=== PATIENT | female | born 1950 | race Caucasian/White ===

== ENCOUNTER 2017-02-26 11:28 | Day surgery (SDC) | payer MEDICARE, OTHER ==
[~2017-02-26] VITALS: Ht 157.5 cm; Wt 83.9 kg
[~2017-02-26 11:28] MED LIST: ALENDRONATE70 MG PO; CALCI23 PO; CLARITIN-D1 TA2 PO; CRANBERY450 MG PO; FISH OIL1000 MG PO; GERITOL COMPLETE PO; LOSARTAN POTASS25 MG PO; OMEPRAZOLE10 MG PO; PRAVASTATIN SOD20 MG PO
[2017-02-26 14:02] VITALS: BP 159/77
== END 2017-02-26 14:20 | disposition home or self-care (01) ==
LOC: ENDO 11:28
PROVIDERS: ATTEND Internal Medicine Gastroenterology
PROC: 0DBP8ZX Excision of Rectum, Via Natural or Artificial Opening Endoscopic, Diagnostic (ICD-10-PCS; principal; 2017-02-26)
PROC: 0DBF8ZX Excision of Right Large Intestine, Via Natural or Artificial Opening Endoscopic, Diagnostic (ICD-10-PCS; 2017-02-26)
PROC: 0DBN8ZX Excision of Sigmoid Colon, Via Natural or Artificial Opening Endoscopic, Diagnostic (ICD-10-PCS; 2017-02-26)
DX: R19.7 Diarrhea, unspecified (principal); R10.12 Left upper quadrant pain; K62.5 Hemorrhage of anus and rectum; K90.0 Celiac disease; R19.5 Other fecal abnormalities; K64.4 Residual hemorrhoidal skin tags; K57.30 Diverticulosis of large intestine without perforation or abscess without bleeding; K50.10 Crohn's disease of large intestine without complications; K62.89 Other specified diseases of anus and rectum; K64.8 Other hemorrhoids; K63.89 Other specified diseases of intestine; E03.9 Hypothyroidism, unspecified; I10 Essential (primary) hypertension; E78.00 Pure hypercholesterolemia, unspecified; F41.9 Anxiety disorder, unspecified; Z86.010 Personal history of colon polyps

== ENCOUNTER 2017-04-16 05:48 | Day surgery (SDC) | payer MEDICARE, OTHER ==
[~2017-04-16] VITALS: Ht 157.5 cm; Wt 83.9 kg
[~2017-04-16 05:48] MED LIST changes: +ARMOUR THYRO15 MG PO; +PAXIL30 MG PO; +VITAMIN D1000 UNIT PO
[2017-04-16 08:05] VITALS: BP 148/66
== END 2017-04-16 08:18 | disposition home or self-care (01) ==
LOC: ENDO 05:48 → ORM 10:45 → ENDO 10:45
PROVIDERS: ATTEND Internal Medicine Gastroenterology
PROC: 0DB98ZX Excision of Duodenum, Via Natural or Artificial Opening Endoscopic, Diagnostic (ICD-10-PCS; principal; 2017-04-16)
PROC: 0DB68ZX Excision of Stomach, Via Natural or Artificial Opening Endoscopic, Diagnostic (ICD-10-PCS; 2017-04-16)
DX: R10.32 Left lower quadrant pain (principal); R19.7 Diarrhea, unspecified; K62.5 Hemorrhage of anus and rectum; K90.0 Celiac disease; I10 Essential (primary) hypertension; E78.00 Pure hypercholesterolemia, unspecified; F41.9 Anxiety disorder, unspecified; K29.50 Unspecified chronic gastritis without bleeding; K44.9 Diaphragmatic hernia without obstruction or gangrene; Q40.8 Other specified congenital malformations of upper alimentary tract; Z86.010 Personal history of colon polyps

== ENCOUNTER 2021-12-08 09:28 | Day surgery (SDC) | payer MEDICARE, OTHER ==
[~2021-12-08] VITALS: Ht 157.5 cm; Wt 84.4 kg
[~2021-12-08 09:28] MED LIST changes: +ALLERGY RELF10 M3 PO; +ATIVAN0.5 MG PO; +ATORVASTATIN CA40 MG PO; +NORVASC5 M1 PO; +OMEGA 3; +OMEPRAZOLE20 MG PO
[2021-12-08 12:03] VITALS: BP 125/67
== END 2021-12-08 11:55 | disposition home or self-care (01) ==
LOC: ENDO 09:28 → ORM 09:30 → ENDO 11:45
PROVIDERS: ATTEND Surgery
PROC: 0DJD8ZZ Inspection of Lower Intestinal Tract, Via Natural or Artificial Opening Endoscopic (ICD-10-PCS; principal; 2021-12-08)
DX: Z12.11 Encounter for screening for malignant neoplasm of colon (principal); K57.30 Diverticulosis of large intestine without perforation or abscess without bleeding; K64.8 Other hemorrhoids; I10 Essential (primary) hypertension; Z86.010 Personal history of colon polyps

== ENCOUNTER 2022-01-18 11:32 | Observation (INO) | payer MEDICARE, OTHER ==
[2022-01-18] VITALS (12 sets, daily range): BP systolic 98–146; BP diastolic 56–81
[~2022-01-18] VITALS: Ht 157.5 cm; Wt 83.0 kg
[2022-01-18 12:21] LABS: HEMATOCRIT 40.6 % (37.0-47.0); HEMOGLOBIN 13.4 g/dl (12.0-16.0); IMMATURE GRANULOCYTES 0.4 % (0.0-5.0); MEAN CELL VOLUME 96.9 fL CALC (80.0-100.0); NEUT# 2.99 thou/uL (2.00-7.15); RED BLOOD COUNT 4.19 mill/uL (4.20-5.60); RED CELL DISTRI WIDTH 12.6 % (11.5-15.5)
[2022-01-18 12:37] LABS: ALBUMIN 4.2 g/dL (3.2-5.0); ALKALINE PHOSPHATASE 54 u/l (38-126); ANION GAP 12 (6-22 (CALC)); BILIRUBIN, TOTAL 0.6 mg/dL (0.0-1.4); BUN 17 mg/dL (8-23); BUN/CREATININE RATIO 28 (12-20 (CALC)); CARBON DIOXIDE 27 mmol/l (22-30); CHLORIDE 104 mmol/l (95-108); CREATININE 0.6 mg/dL (0.5-1.0); GFR > 60 ML/MIN (>=60 (CALC)); GFR FOR AFR.AMER. > 60 ML/MIN (>=60 (CALC)); POTASSIUM 3.9 mmol/l (3.5-5.1); SGOT/AST 29 u/l (9-36); SODIUM 139 mmol/l (137-146); TOTAL PROTEIN 7.3 g/dL (6.3-8.2)
[2022-01-19 03:53] VITALS: BP 114/66
[2022-01-19 07:07] LABS: BUN 12 mg/dL (8-23); BUN/CREATININE RATIO 23 (12-20 (CALC)); CALCULATED LDLCHOLESTEROL 57 mg/dL (62-129 (CALC)); CARBON DIOXIDE 26 mmol/l (22-30); CHLORIDE 105 mmol/l (95-108); CHOLESTEROL HDL RATIO 2.2 (<4.4 (CALC)); CREATININE 0.5 mg/dL (0.5-1.0); GFR > 60 ML/MIN (>=60 (CALC)); GFR FOR AFR.AMER. > 60 ML/MIN (>=60 (CALC)); HDL CHOLESTEROL 73 mg/dL (>=40); MAGNESIUM 1.7 mg/dL (1.6-2.3); SODIUM 136 mmol/l (137-146); TOTAL CHOLESTEROL 162 mg/dl (0-199); TOTAL TRIGLYCERIDES 161 mg/dl (30-149); VLDL CHOLESTROL 32 mg/dl (1-41 (CALC))
[2022-01-19 07:09] LABS: ANION GAP 9 (6-22 (CALC))
[2022-01-19 08:26] VITALS: BP 122/71
[2022-01-19] MEDS ORDERED: ASPIRIN 81 LOW81 MG PO (10:21)
[2022-01-19 13:22] LABS: HEMATOCRIT 39.6 % (37.0-47.0); HEMOGLOBIN 12.8 g/dl (12.0-16.0); MEAN CELL VOLUME 98.3 fL CALC (80.0-100.0); MEAN CORPUSCULAR HGB 31.8 pG CALC (26.0-32.0); MEAN CORPUSCULAR HGB CONC 32.3 g/dL CAL (32.0-36.0); RED BLOOD COUNT 4.03 mill/uL (4.20-5.60); RED CELL DISTRI WIDTH 12.6 % (11.5-15.5)
== END 2022-01-19 10:48 | disposition home or self-care (01) ==
LOC: ED 11:32 → ED-I 12:50 → ED 13:10 → MS2 13:11
PROVIDERS: Family Medicine; ADMIT Hospitalist; ATTEND Hospitalist
DX: R07.2 Precordial pain (principal); I10 Essential (primary) hypertension; E78.5 Hyperlipidemia, unspecified; F41.8 Other specified anxiety disorders; K21.9 Gastro-esophageal reflux disease without esophagitis; F17.290 Nicotine dependence, other tobacco product, uncomplicated; Z20.822 Contact with and (suspected) exposure to COVID-19
CPT/HCPCS: J1650

== ENCOUNTER 2023-10-07 13:54 | Emergency (ER) | payer MEDICARE, OTHER ==
[~2023-10-07] VITALS: Ht 157.5 cm; Wt 74.4 kg
[~2023-10-07 13:54] MED LIST changes: +ASPIRIN 81 LOW81 MG PO; +ATIVAN1 MG PO; +B COMPLEX-1 PO; +CELEBREX100 M1 PO; +CLOBETASOL0.05 % EX; +COZAAR100 MG PO; +COZAAR50 MG PO; +CRANBERRY PO; +EFFEXOR XR37.5 MG PO; +EFFEXOR XR75 MG/CAP PO; +MUPIROCIN2 % EX; +ONDANSETRON4 MG PO; +PERCOCET 5/321 COMBO PO; +PERCOCET 5/325M1 TAB PO; +WOMENS DAILY PO; +XIFAXAN550 MG PO; +ZPAK PO
[2023-10-07 16:07] LABS: URINE BILIRUBIN - DIPSTICK Negative (NEGATIVE); URINE BLOOD DIPSTICK Negative (NEGATIVE); URINE GLUCOSE - DIPSTICK Negative (NEGATIVE); URINE KETONE 15 mg/dL (NEGATIVE); URINE LEUK ESTERASE Negative (NEGATIVE); URINE NITRITE - DIPSTICK Negative (Negative); URINE PH 5.5 (4.5-8.0); URINE PROTEIN - DIPSTICK Negative (NEG-TRACE); URINE UROBILINOGEN - DIPSTICK 0.2 E.U./dL (0.2)
[2023-10-07 16:09] LABS: URINE COLOR Yellow
[2023-10-07] MEDS ORDERED: CYCLOBENZAPRINE10 MG PO (17:57)
[2023-10-07] MEDS ORDERED: PERCOCET 5/321 COMBO PO (17:57)
[2023-10-07] MEDS ORDERED: PREDNISONE10 MG PO (17:57)
[2023-10-07] MEDS ORDERED: NAPROXEN500 MG PO (17:57)
[2023-10-07 18:03] VITALS: BP 129/70
== END 2023-10-07 18:12 | disposition home or self-care (01) ==
LOC: ED 13:54
PROVIDERS: Nurse Practitioner
DX: S39.012A Strain of muscle, fascia and tendon of lower back, initial encounter (principal); X50.0XXA Overexertion from strenuous movement or load, initial encounter; M48.56XD Collapsed vertebra, not elsewhere classified, lumbar region, subsequent encounter for fracture with routine healing; M48.54XD Collapsed vertebra, not elsewhere classified, thoracic region, subsequent encounter for fracture with routine healing

== ENCOUNTER 2023-11-29 15:34 | Emergency (ER) | payer MEDICARE, OTHER ==
[~2023-11-29] VITALS: Ht 157.5 cm; Wt 70.3 kg
[2023-11-29] VITALS (7 sets, daily range): BP systolic 127–138; BP diastolic 65–81
[~2023-11-29 15:34] MED LIST changes: +CYCLOBENZAPRINE10 MG PO; +NAPROXEN500 MG PO; +PREDNISONE10 MG PO
[2023-11-29 19:00] LABS: BASO% 0.9 % (0-3); HEMATOCRIT 41.4 % (37.0-47.0); HEMOGLOBIN 13.8 g/dl (12.0-16.0); LYMPH% 30.8 % (15-41); MEAN CELL VOLUME 94.3 fL CALC (80.0-100.0); MEAN CORPUSCULAR HGB 31.4 pG CALC (26.0-32.0); MEAN CORPUSCULAR HGB CONC 33.3 g/dL CAL (32.0-36.0); MONO% 8.4 % (2-13); NEUT# 3.8 thou/uL (2.00-7.15); NEUT% 53.9 % (42-76); RED BLOOD COUNT 4.39 mill/uL (4.20-5.60); RED CELL DISTRI WIDTH 11.9 % (11.5-15.5)
[2023-11-29 19:15] LABS: ALBUMIN 4.6 g/dL (3.2-5.0); ALKALINE PHOSPHATASE 77 u/l (38-126); AMYLASE 51 u/l (30-110); ANION GAP 12 (6-22 (CALC)); BILIRUBIN, TOTAL 0.5 mg/dL (0.02-1.3); BUN 8 mg/dL (8-23); BUN/CREATININE RATIO 15 (12-20 (CALC)); CARBON DIOXIDE 22 mmol/l (22-30); CHLORIDE 101 mmol/l (95-108); CREATININE 0.5 mg/dL (0.5-1.0); GFR FOR AFR.AMER. > 60 ML/MIN (>=60 (CALC)); GFR OTHER RACES > 60 ML/MIN (>=60 (CALC)); LIPASE 117 u/l (23-300); POTASSIUM 4.3 mmol/l (3.5-5.1); SGOT/AST 43 u/l (9-36); SODIUM 131 mmol/l (137-146)
[2023-11-29 19:35] LABS: URINE BILIRUBIN - DIPSTICK Negative (NEGATIVE); URINE BLOOD DIPSTICK Negative (NEGATIVE); URINE COLOR Yellow; URINE GLUCOSE - DIPSTICK Negative (NEGATIVE); URINE KETONE 15 mg/dL (NEGATIVE); URINE LEUK ESTERASE Negative (NEGATIVE); URINE NITRITE - DIPSTICK Negative (Negative); URINE PROTEIN - DIPSTICK Negative (NEG-TRACE); URINE UROBILINOGEN - DIPSTICK 0.2 E.U./dL (0.2)
[2023-11-29] MEDS ORDERED: KETOROLAC TROMETHAMINE 15 MG/ML SDV IV ONE (20:25)
[2023-11-29] MEDS ORDERED: SODIUM CHLORIDE 0.9% 1,000 ML IV ONE (20:25)
[2023-12-02] MEDS ORDERED: DICYCLOMINE HYD10 MG PO (12:54)
== END 2023-11-29 22:30 | disposition home or self-care (01) ==
LOC: ED 15:34
PROVIDERS: Nurse Practitioner
DX: R10.9 Unspecified abdominal pain (principal); K21.9 Gastro-esophageal reflux disease without esophagitis; I10 Essential (primary) hypertension
CPT/HCPCS: Q9967

== ENCOUNTER 2024-12-19 10:42 | Emergency (ER) | payer MEDICARE, OTHER ==
[~2024-12-19] VITALS: Ht 157.5 cm; Wt 78.0 kg
[~2024-12-19 10:42] MED LIST changes: +DICYCLOMINE HYD10 MG PO
[2024-12-19] MEDS ORDERED: KETOROLAC TROMETHAMINE 30 MG/ML SDV IV ONE (12:50)
[2024-12-19 13:06] LABS: URINE BILIRUBIN - DIPSTICK Negative (NEGATIVE); URINE BLOOD DIPSTICK Negative (NEGATIVE); URINE GLUCOSE - DIPSTICK Negative (NEGATIVE); URINE KETONE Negative (NEGATIVE); URINE LEUK ESTERASE Trace (NEGATIVE); URINE NITRITE - DIPSTICK Negative (Negative); URINE PH 6.5 (4.5-8.0); URINE PROTEIN - DIPSTICK Negative (NEG-TRACE); URINE SPECIFIC GRAVITY 1.015; URINE UROBILINOGEN - DIPSTICK 0.2 E.U./dL (0.2)
[2024-12-19 13:09] LABS: URINE COLOR Yellow
[2024-12-19 13:31] LABS: BASO% 0.5 % (0-3); EOS% 3.1 % (0-8); HEMATOCRIT 39.4 % (37.0-47.0); HEMOGLOBIN 13.3 g/dl (12.0-16.0); IMMATURE GRANULOCYTES 0.1 % (0.0-5.0); LYMPH% 21.8 % (15-41); MEAN CELL VOLUME 94.9 fL CALC (80.0-100.0); MEAN CORPUSCULAR HGB CONC 33.8 g/dL CAL (32.0-36.0); NEUT# 5.02 thou/uL (2.00-7.15); NEUT% 67.5 % (42-76); RED BLOOD COUNT 4.15 mill/uL (4.20-5.60); RED CELL DISTRI WIDTH 11.8 % (11.5-15.5)
[2024-12-19 14:00] LABS: ALBUMIN 4.3 g/dL (3.2-5.0); BILIRUBIN, TOTAL 0.7 mg/dL (0.02-1.3); CREATININE 0.5 mg/dL (0.5-1.0); POTASSIUM 4.3 mmol/l (3.5-5.1); TOTAL PROTEIN 6.9 g/dL (6.3-8.2)
[2024-12-19] MEDS ORDERED: LORTAB 5/3255 MG PO ×2 (15:56→17:00)
[2024-12-19] MEDS ORDERED: HYDROcodone 5 MG/Acetaminophen 325 MG/COMBO PO ONE (16:00)
[2024-12-19 16:17] VITALS: BP 147/87
== END 2024-12-19 16:32 | disposition home or self-care (01) ==
LOC: ED 10:42
PROVIDERS: Family Medicine; Nurse Practitioner
DX: S22.41XA Multiple fractures of ribs, right side, initial encounter for closed fracture (principal); S30.1XXA Contusion of abdominal wall, initial encounter; I10 Essential (primary) hypertension; K21.9 Gastro-esophageal reflux disease without esophagitis; K44.9 Diaphragmatic hernia without obstruction or gangrene; E78.5 Hyperlipidemia, unspecified; X58.XXXA Exposure to other specified factors, initial encounter; Z90.49 Acquired absence of other specified parts of digestive tract